=== PATIENT | male | born 1985 | race Caucasian/White ===

== ENCOUNTER 2023-01-05 01:13 | Emergency (ER) | payer OTHER ==
[2023-01-05] MEDS ORDERED: Ketorolac Tromethamine 30 MG/ML VIAL ONE (01:40)
[2023-01-05] MEDS ORDERED: Orphenadrine Citrate 60 MG/2 ML VIAL IM SCH (01:45)
[2023-01-05] MEDS ORDERED: HYDROcodone/Acetaminophen 5/325 mg Tablet ONE (02:28)
[2023-01-05] MEDS ORDERED: Cyclobenzaprine 10 MG TAB ONE (03:32)
== END 2023-01-05 04:25 | disposition home or self-care (01) ==
LOC: CSHERS 01:13
DX: M54.41 Lumbago with sciatica, right side (principal)
CPT/HCPCS: 96372; 99283; J1885; J2360

== ENCOUNTER 2023-02-21 21:46 | Emergency (ER) | payer OTHER ==
[2023-02-21] MEDS ORDERED: Prochlorperazine 10 MG/2 ML VIAL ONE (22:39)
[2023-02-21] MEDS ORDERED: Ketorolac Tromethamine 30 MG/ML VIAL ONE (22:40)
== END 2023-02-21 23:30 | disposition home or self-care (01) ==
LOC: CSHERS 21:46
DX: G44.009 Cluster headache syndrome, unspecified, not intractable (principal)
CPT/HCPCS: 96374; 96375; J0780; J1885